=== PATIENT | female | born 2000 | race Caucasian/White ===

== ENCOUNTER 2018-07-06 09:11 | Emergency (ER) | payer BC ==
[~2018-07-06] VITALS: Ht 162.6 cm; Wt 75.0 kg
[2018-07-06 09:26] VITALS: Ht 162.6 cm; Wt 75.0 kg
[2018-07-06 10:14] LABS: HCG URINE NEGATIVE (NEGATIVE)
[2018-07-06 10:24] LABS: APPEARANCE CLEAR (CLEAR); COLOR STRAW (YELLOW)
[2018-07-06 10:25] LABS: BILIRUBIN NEGATIVE (NEGATIVE); GLUCOSE NEGATIVE (NEGATIVE); KETONE NEGATIVE (NEGATIVE); NITRITE NEGATIVE (NEGATIVE); PROTEIN NEGATIVE (NEGATIVE); UROBILINOGEN NORMAL (NORMAL)
[2018-07-06 10:26] LABS: BACTERIA FEW /hpf (NONE SEEN); EPITHELIAL CELLS 0-5 /hpf (0-5); RED CELLS - URINE 0-5 /hpf (0-5); WHITE CELLS - URINE 0-5 /hpf (0-5)
[2018-07-06] MEDS ORDERED: STERAPRED DS 1010 MG PO (11:13)
[2018-07-06] MEDS ORDERED: TORADOL10 MG PO (11:13)
[2018-07-06 12:24] VITALS: BP 110/62
== END 2018-07-06 12:25 | disposition home or self-care (01) ==
LOC: D.ER 09:11
PROVIDERS: Family Medicine
DX: M54.32 Sciatica, left side (principal)